=== PATIENT | female | born 1980 | race Caucasian/White ===

== ENCOUNTER 2025-07-09 06:54 | Emergency (ER) | payer BC, OTHER ==
[~2025-07-09] VITALS: Ht 170.2 cm; Wt 86.1 kg
[2025-07-09 07:36] LABS: Hematocrit 38.9 % (36.0-46.0); Hemoglobin 13.5 g/dL (12.2-16.2); Mean Corpuscular Hemoglobin 29.1 pg (28.0-32.0); Mean Corpuscular Volume 84.0 fL (80.0-100.0); Nucleated Red Blood Cells % 0.0 %
[2025-07-09 07:44] VITALS: PULSE 65; RESP 16; O2SAT 98
[2025-07-09 07:45] LABS: Anion Gap 12 (5-15); Carbon Dioxide 23 mmol/L (20-31); Potassium 3.6 mmol/L (3.5-5.1); Sodium 142 mmol/L (136-145)
[2025-07-09 07:46] LABS: Calcium 10.1 mg/dL (8.7-10.4)
[2025-07-09 07:51] LABS: BUN/Creatinine Ratio 6.4 (10.0-20.0); Blood Urea Nitrogen 6 mg/dL (9-23); Chloride 107 mmol/L (98-107); Glucose 94 mg/dL (74-106)
--- NOTE | 2025-07-09 08:11 | ED.PDOC ---
History of Present Illness HPI Comments 45-YEAR-OLD FEMALE ARNIE WITH PRIOR MEDICAL HISTORY OF ISAIAH DANLES SYNDROME, OVARIAN CYST AND A CHIEF COMPLAINT OF ABDOMINAL PAIN. EMS REPORT THAT THE PATIENT FLEW IN FROM [place] LAST NIGHT AND STARTED TO HAVE ONSET SYMPTOMS OF EPIGASTRIC PAIN WHICH RADIATES AROUND TO THE BACK. PATIENT STATES ON HAVING D IARRHEA WELL. IN NOTES ON RECENTLY EATING FAST FOOD. DENIES CHILLS, FEVER, N/V, SOB, CP. NO OTHER ASSOCIATED SYMPTOMS, MODIFIERS, RECENT INJURIES OR SICK CONTACTS PRESENT AT THIS TIME. Chief Complaint: Abdominal Pain Time Seen by MD: 08:00 Reviewed Notes: Nurses Notes, Medications, Allergies Allergies: Coded Allergies: Acetaminophen (Verified Allergy, Unknown, 07/09/25) Clindamycin (Verified Allergy, Unknown, 07/09/25) Oxycodone (Verified Allergy, Unknown, 07/09/25) Information Source: Patient Mode of Arrival: EMS Severity: Moderate Timing: Hours Duration: Since onset Prehospital treatment: None Past Medical History PAST MEDICAL HISTORY: Denies Surgical History: Denies all surgeries INTERIOR DESIGN CONSULTANT History: No Pertinent INTERIOR DESIGN CONSULTANT History Family History Family History: Reviewed,noncontributory to illness, Unknown Social History Smoker: Non-Smoker Alcohol: Denies ETOH Use Drugs: Denies Drug Use Lives In: Home Constitutional: denies: chills, diaphoresis, fatigue, fever, malaise, sweats, weakness, others EENTM: denies: blurred vision, double vision, ear bleeding, ear discharge, ear drainage, ear pain, ear ringing, eye pain, eye redness, hearing loss, mouth pain, mouth swelling, nasal discharge, nose bleeding, nose congestion, nose pain, photophobia, tearing, throat pain, throat swelling, voice changes, others Respiratory: denies: cough, hemoptysis, orthopnea, SOB at rest, shortness of breath, SOB with excertion, stridor, wheezing, others Cardiovascular: denies: chest pain, dizzy spells, diaphoresis, Dyspnea on exertion, edema, irregular heart beat, left arm pain, lightheadedness, palpitations, PND, syncope, others Gastrointestinal: reports: abdominal pain, diarrhea; denies: abdomen distended, blood streaked bowels, constipated, dysphagia, difficulty swallowing, hematemesis, melena, nausea, poor appetite, poor fluid intake, rectal bleeding, rectal pain, vomiting, others Genitourinary: denies: abnormal vagina bleeding, burning, dyspareunia, dysuria, flank pain, frequency, hematuria, incontinence, pain, , vagina discharge, urgency, others Neurological: denies: dizziness, fainting, headache, left sided numbness, left sided weakness, numbness, paresthesia, pre-existing deficit, right sided numbness, right sided weakness, seizure, speech problems, tingling, tremors, weakness, others Musculoskeletal: reports: back pain; denies: gout, joint pain, joint swelling, muscle pain, muscle stiffness, neck pain, others Integumetry: denies: bruises, change in color, change in hair/nails, dryness, laceration, lesions, lumps, rash, wounds, others Allergic/Immunocompromised: denies: Difficulty Healing, Frequent Infections, Hives, Itching, others Hematologic/Lymphatic: denies: anemia, blood clots, easy bleeding, easy bruising, swollen glands, others Endocrine: denies: excessive hunger, excessive sweating, excessive thirst, excessive urination, flushing, intolerance to cold, intolerance to heat, unexplained weight gain, unexplained weight loss, others Psychiatric: denies: anxiety, bipolar disorder, depression, hopeless, panic disorder, schizophrenia, sleepless, suicidal, others All Other Systems: Reviewed and Negative Physical Exam General Appearance: No Apparent Distress, Normal HEENT: Normal ENT Inspection, Pharynx Normal, TMs Normal Neck: Full Range of Motion, Non-Tender, Normal, Normal Inspection Respiratory: Chest Non-Tender, Lungs Clear, No Accessory Muscle Use, No Respiratory Distress, Normal Breath Sounds Cardiovascular: No Edema, No JVD, No Murmur, No Gallop, Normal Peripheral Pulses, Regular Rate/Rhythm Breast Exam: Deferred Gastrointestinal: No Organomegaly, Non Tender, No Pulsatile Mass, Normal Bowel Sounds, Soft Genitalia: Deferred Pelvic: Deferred Rectal: Deferred Extremities: No calf tenderness, Normal capillary refill, Normal inspection, Normal range of motion, Non-tender, No pedal edema Musculoskeletal : Apperance: Normal Neurologic: Alert, 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 Was a procedure done?: No Differential Dx Considerations may include: Appendicitis, diverticulitis, pancreatitis, gastritis X-Ray, Labs, Meds, VS Vital Signs Date Time Temp Pulse Resp B/P (MAP) Pulse Ox O2 Delivery O2 Flow Rate FiO2 07/09/25 09:27 68 14 118/80 (93) 98 07/09/25 08:17 97.8 66 17 129/83 98 97.8 07/09/25 07:44 65 16 98 Room Air* 0 21 07/09/25 07:44 98.2 65 16 135/84 (101) 98 98.2 07/09/25 07:30 67 Lab Test 07/09/25 10:42 07/09/25 07:26 Range/Units Urine Color Colorless Yellow Urine Clarity Turbid H Clear Urine pH 6.5 5.0-9.0 Urine Specific [place] 1.015 1.001-1.035 Urine Protein Negative Negative Urine Ketones Negative Negative Urine Blood Negative Negative /uL Urine Nitrite Negative Negative Urine Bilirubin Negative Negative Urine Urobilinogen Normal Negative mg/dL Urine Leukocyte Esterase Negative Negative /uL Urine RBC 2 0 - 4 /hpf Urine Microscopic WBC 2 0-5 /HPF Urine Squamous Epithelial Cells Mod <5 /hpf Urine Bacteria None seen None Seen /hpf Urine Glucose Normal Normal mg/dL White Blood Count 6.7 4.4-10.8 10^3/uL Red Blood Count 4.63 4.0-5.20 10^6/uL Hemoglobin 13.5 12.2-16.2 g/dL Hematocrit 38.9 36.0-46.0 % Mean Corpuscular Volume 84.0 80.0-100.0 fL Mean Corpuscular Hemoglobin 29.1 28.0-32.0 pg Mean Corpuscular Hemoglobin Concent 34.6 32.0-36.0 g/dL Red Cell Distribution Width 12.7 11.8-14.3 % Platelet Count 246 140-450 10^3/uL Mean Platelet Volume 8.3 6.9-10.8 fL Neutrophils (%) (Auto) 76.2 37.0-80.0 % Lymphocytes (%) (Auto) 17.5 10.0-50.0 % Monocytes (%) (Auto) 4.3 0.0-12.0 % Eosinophils (%) (Auto) 1.0 0.0-7.0 % Basophils (%) (Auto) 1.0 0.0-2.0 % Neutrophils # (Auto) 5.1 1.6-8.6 10 ^3/uL Lymphocytes # (Auto) 1.2 0.4-5.4 10 ^3/uL Monocytes # (Auto) 0.3 0-1.3 10 ^3/uL Eosinophils # (Auto) 0.1 0-0.8 10 ^3/uL Basophils # (Auto) 0.1 0-0.2 10 ^3/uL Nucleated Red Blood Cells 0.0 % Sodium Level 142 136-145 mmol/L Potassium Level 3.6 3.5-5.1 mmol/L Chloride Level 107 98-107 mmol/L Carbon Dioxide Level 23 20-31 mmol/L Anion Gap 12 5-15 Blood Urea Nitrogen 6 L 9-23 mg/dL Creatinine 0.94 0.550-1.02 mg/dL Glomerular Filtration Rate Calc 76 >90 mL/min BUN/Creatinine Ratio 6.4 L 10.0-20.0 Serum Glucose 94 74-106 mg/dL Calcium Level 10.1 8.7-10.4 mg/dL Lipase 39 12-53 U/L Current Medications Medications (Trade) Dose Ordered Sig/Alycia Route Start Time Stop Time Status Last Admin Sodium Chloride 1,000 ml @ 1,000 mls/hr Q1H ONCE IV 07/09/25 07:45 07/09/25 08:44 DC 07/09/25 08:16 Ketorolac Tromethamine (Toradol Injection) 15 mg ONCE ONCE IV 07/09/25 07:45 07/09/25 07:46 DC 07/09/25 08:17 Ondansetron HCl (Zofran) 4 mg ONCE ONCE IV 07/09/25 07:45 07/09/25 07:46 DC 07/09/25 08:16 Time of 1ST Reevaluation: 08:30 Reevaluation 1ST: Unchanged Patient Education/Counseling: Diagnosis, Treatment, Prognosis Family Education/Counseling: No Family Present SEPSIS Sepsis Screen Physician Orders Ct Ab Pel With Iv Con Only (07/09/25 11:36) Vital Signs Date Time Temp Pulse Resp B/P (MAP) Pulse Ox O2 Delivery O2 Flow Rate FiO2 07/09/25 09:27 68 14 118/80 (93) 98 07/09/25 08:17 97.8 66 17 129/83 98 97.8 07/09/25 07:44 65 16 98 Room Air* 0 21 07/09/25 07:44 98.2 65 16 135/84 (101) 98 98.2 07/09/25 07:30 67 Laboratory Tests Test 07/09/25 07:26 White Blood Count 6.7 10^3/uL (4.4-10.8) Medications Medications Dose Ordered Sig/Alycia Route Start Time Stop Time Status Last Admin Dose Admin Ketorolac Tromethamine 15 mg ONCE ONCE IV 07/09/25 07:45 07/09/25 07:46 DC 07/09/25 08:17 Ondansetron HCl 4 mg ONCE ONCE IV 07/09/25 07:45 07/09/25 07:46 DC 07/09/25 08:16 Sodium Chloride 1,000 ml @ 1,000 mls/hr Q1H ONCE IV 07/09/25 07:45 07/09/25 08:44 DC 07/09/25 08:16 Departure 1 Departure Time of Disposition: 12:34 (Patient presented with abdominal pain that was concerning for possible appendicits, gastritis, cholecystitis, colitis, gastroenteritis, sbo, or orther possible surgical emergency. Data: 1. I ordered and reviewed the result of at least 3 labs including a CBC, BMP, and Urinalysis. 2. I independently interpreted the following tests: CT Abdomen and Pelvis is concerning for benign abdomen .Risk:This patient has a high risk of morbidity due to further diagnostic testing or treatment and may suffer from an acute abdominal process disorder. Workup reveals intractable abdominal pain and patient should be admitted for further workup. and possible expert consultation. ) Impression: Primary Impression: Intractable abdominal pain Disposition: ADMITTED INPATIENT Admit to: Med Surg Condition: Serious Critical Care Note Critical Care Time?: No Stability Stability form required: No I personally scribed for JOSSELYN SON MD ([email or web address]) on 07/09/25 at 08:11. Electronically submitted by Nii Lynn ([email or web address]). JOSSELYN SON MD Jul 09, 2025 08:11
[2025-07-09] MEDS: ONDANSETRON HCL 4 MG/2 ML VIAL IV ONE (08:16)
[2025-07-09] MEDS: SODIUM CHLORIDE 0.9% 1,000 ML IV ONE (08:16)
[2025-07-09] MEDS: KETOROLAC TROMETH 30 MG/ML 1ML VIAL IV ONE (08:17)
[2025-07-09 10:38] LABS: Urine Protein, UAD Negative (Negative)
--- NOTE | 2025-07-09 10:56 | ECG ---
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
--- NOTE | 2025-07-09 12:28 | DVH ---
CT CT AB PEL WITH IV CON ONLY INDICATION: abdominal pain EXAM DATE: 07/09/2025 11:37 AM COMPARISON: None RADIATION DOSE: CTDIvol: 23.51 mGy, DLP: 1294.11 mGy*cm PROCEDURE: Helical CT images were obtained of the abdomen and pelvis with IV contrast Sagittal and co osmel reconstructions are provided. ORAL CONTRAST: None. ADDITIONAL IMAGES / REFORMATS: None All CT s cans at this medical facility are performed using dose modulation techniques as appropriate to a perf ormed exam including the following: Automated exposure control was utilized; adjustment of the MA and /or KV according to patient size; and use of iterative reconstruction technique. FINDINGS: LUNG BASE: Normal. LIVER: Normal. GALLBLADDER AND BILIARY TREE: No calcified gallstones. Normal caliber wall. No intra- or extrahepatic biliary ductal dilation. PANCREAS: Normal. SPLEEN: Normal. BOWEL: Normal. Normal appendix. ADRENALS: Normal. KIDNEYS AND URETER: Normal. BLADDER: Normal. REPRODUCTIVE ORGANS: Absent uterus. LYMPH NODES:No lymphadenopathy. PERITONEUM: No ascites or free air. No other fluid collection. VESSELS: Scattered atherosclerotic calcifications are noted. RETROPERITONEUM: Normal. ABDOMINAL WALL: Normal. BONES: Scattered osseous degenerative changes are noted. L5-S1 lumbar spinal hardware is present. IMPRESSION: No acute intraabdominal abnormality.
[2025-07-09 12:47] VITALS: BP 125/79; TEMP 98.2
[2025-07-09 13:42] VITALS: PULSE 65; RESP 16; O2SAT 98
[2025-07-09] MEDS ORDERED: ZOFR4T PO (14:27)
--- NOTE | 2025-07-09 14:28 | ED.PDOC ---
Departure 1 Departure Time of Disposition: 12:34 (Patient presented with abdominal pain that was concerning for possible appendicits, gastritis, cholecystitis, colitis, gastroenteritis, sbo, or orther possible surgical emergency. Data: 1. I ordered and reviewed the result of at least 3 labs including a CBC, BMP, and Urinalysis. 2. I independently interpreted the following tests: CT Abdomen and Pelvis is concerning for benign abdomen .Risk:This patient has a high risk of morbidity due to further diagnostic testing or treatment and may suffer from an acute abdominal process disorder. Workup reveals intractable abdominal pain and patient should be admitted for further workup. and possible expert consultation. ) Impression: Primary Impression: Gastroenteritis Additional Impression: Intractable abdominal pain Disposition: HOME / SELF CARE / HOMELESS Condition: Stable Additional Instructions: You likely have gastroenteritis. It is important to stay well hydrated and well rested. This usually resolves within 1 week. If your symptoms worsen or you have any other concerns please return to the ER. e-Prescriptions Ondansetron Odt 4MG Tab (ZOFRAN PO) 4 Mg Tb 4 MG PO TID PRN for 5 Days, #15 TAB ODT TAB-DISSOLVE IN MOUTH, THEN SWALLOW Prov: JOSSELYN SON MD 07/09/25 Discharged With: Self JOSSELYN SON MD Jul 09, 2025 14:28
== END 2025-07-09 14:33 | disposition home or self-care (01) ==
LOC: EDBD 06:54 → ER 06:54
DX: K52.9 Noninfective gastroenteritis and colitis, unspecified (principal); Z88.1 Allergy status to other antibiotic agents; Z88.5 Allergy status to narcotic agent
CPT/HCPCS: 36415; 74177; 80048; 81001; 83690; 85025; 93005; 96361; 96374; 96375; 99285; J1885; J2405; J7030